=== PATIENT | female | born 1985 | race African-American/Black ===

== ENCOUNTER → 2023-02-15 | Outpatient (CLI) | payer OTHER ==
[~2023-02-15] MED LIST: GASTROGRAFIN SOLUTION 30ML ONE; ISOVUE-300 61% 100ML VIAL ONE
== END ==
LOC: M PLAIMG 07:58
PROVIDERS: ATTEND Physician Assistant
DX: R10.13 Epigastric pain (principal)
CPT/HCPCS: 74170; Q9963; Q9967